=== PATIENT | female | born 1990 | race Caucasian/White ===

== ENCOUNTER → 2017-12-04 | Outpatient (CLI) | payer BC ==
[2017-12-04 07:00] LABS: Basophils % (A) 0 %; Eosinophils # (A) 0.2 k/uL (0-0.7); Eosinophils % (A) 2 %; HCT 41.8 % (34.0-46.0); HGB 13.3 gm/dL (11.4-16.0); Lymphocytes # (A) 2.3 k/uL (1.0-4.8); Lymphocytes % (A) 28 %; MCH 25.9 pg (25.0-35.0); MCHC 31.9 g/dL (31.0-37.0); MCV 81.3 fL (80.0-100.0); Mean Platelet Volume 7.2; Monocytes # (A) 0.4 k/uL (0-1.0); Monocytes % (A) 5 %; Neutrophils # (A) 5.1 k/uL (1.3-7.7); Neutrophils % (A) 63 %; Platelet Count 282 k/uL (150-450); RBC 5.14 m/uL (3.80-5.40); WBC 8.1 k/uL (3.8-10.6)
[2017-12-04 07:26] LABS: ALT 142 U/L (9-52); AST 193 U/L (14-36); Albumin 4.2 g/dL (3.5-5.0); Alkaline Phosphatase 51 U/L (38-126); Anion Gap 11 mmol/L; Blood Urea Nitrogen 13 mg/dL (7-17); Calcium 9.7 mg/dL (8.4-10.2); Carbon Dioxide 25 mmol/L (22-30); Chloride 101 mmol/L (98-107); Cholesterol 191 mg/dL (<200); Glucose 212 mg/dL (74-99); HDL Cholesterol 47 mg/dL (40-60); LDL Cholesterol,Calculated 115 mg/dL (0-99); Potassium 4.8 mmol/L (3.5-5.1); Sodium 137 mmol/L (137-145); Total Bilirubin 0.8 mg/dL (0.2-1.3); Total Protein 7.2 g/dL (6.3-8.2); Triglycerides 145 mg/dL (<150)
[2017-12-04 07:41] LABS: T4, Free (Free Thyroxine) 1.42 ng/dL (0.78-2.19)
== END | disposition home or self-care (01) ==
LOC: LABWHC1 06:39
PROVIDERS: ATTEND Internal Medicine
DX: E78.00 Pure hypercholesterolemia, unspecified (principal); E11.9 Type 2 diabetes mellitus without complications; Z13.29 Encounter for screening for other suspected endocrine disorder; Z13.228 Encounter for screening for other metabolic disorders
CPT/HCPCS: 36415; 80053; 80061; 82043; 82570; 83036; 84439; 84443; 85025

== ENCOUNTER 2021-02-02 10:40 | Emergency (ER) | payer BC ==
[2021-02-02 10:44] VITALS: BP 133/79; PULSE 111; RESP 18; TEMP 97.9
--- NOTE | 2021-02-02 12:10 | XR ---
EXAMINATION TYPE: XR ankle complete LT DATE OF EXAM: 02/02/2021 COMPARISON: NONE HISTORY: Pain TECHNIQUE: 3 views of the left ankle are submitted for evaluation. FINDINGS: There is no evidence for fracture or dislocation. Ankle mortise is intact. Mild soft tissue swelling. IMPRESSION: 1. No evidence for acute fracture.
--- NOTE | 2021-02-02 12:11 | XR ---
EXAMINATION TYPE: XR foot complete LT DATE OF EXAM: 02/02/2021 CLINICAL HISTORY: pain TECHNIQUE: Frontal, lateral and oblique images of the left foot are obtained. COMPARISON: None. FINDINGS: There is no acute fracture/dislocation evident. The joint spaces appear within normal long its. The overlying soft tissue appears unremarkable. IMPRESSION: There is no acute fracture or dislocation. ICD 10 NO FRACTURE, INITIAL EVALUATION
--- NOTE | 2021-02-02 12:58 | ED ---
Lower Extremity Injury HPI - General Chief Complaint: Extremity Injury, Lower Stated Complaint: L Foot Pain Time Seen by Provider: 02/02/21 12:49 Source: patient, family Mode of arrival: ambulatory Limitations: no limitations - History of Present Illness Initial Comments: 30-year-old female presents to the emergency department with a chief complaint of left foot injury. Status occurred about 2 days ago when she was cutting grass and she stepped into a hole with an inversion injury. Patient reports most of the pain is located along the lateral aspect of the foot. Patient reports some pain with weightbearing. Patient also appears to be exacerbated with inversion according to the patient her she does report some swelling but denies any ecchymosis. States the swelling has resolved. Denies any numbness or tingling. - Related Data Home Medications Medication Instructions Recorded Confirmed Dapagliflozin Propanediol [Farxiga] 5 mg PO DAILY 11/24/15 11/29/15 Ibuprofen [Motrin] 200 - 400 mg PO Q6HR PRN 11/24/15 11/24/15 Mylan Control Pill 1 tab PO HS 11/24/15 11/29/15 glipiZIDE [Glucotrol] 5 mg PO BID 11/24/15 11/29/15 Previous Rx's Medication Instructions Recorded Hydrocodone/Acetaminophen [[place] 1 tab PO Q4HR PRN #30 tab 11/29/15 5-325] Allergies Allergy/AdvReac Type Severity Reaction Status Date / Time egg Allergy Abdominal Verified 02/02/21 10:44 Pain Review of Systems ROS Statement: Those systems with pertinent positive or pertinent negative responses have been documented in the HPI. ROS Other: All systems not noted in ROS Statement are negative. Past Medical History Past Medical History: Diabetes Mellitus History of Any Multi-Drug Resistant Organisms: None Reported Past Surgical History: No Surgical Hx Reported Past Psychological History: No Psychological Hx Reported Smoking Status: Never smoker Past Alcohol Use History: None Reported Past Drug Use History: None Reported General Exam Limitations: no limitations General appearance: alert, in no apparent distress, obese Head exam: Present: atraumatic, normocephalic, normal inspection Eye exam: Present: normal appearance, PERRL, EOMI Pupils: Present: normal accommodation ENT exam: Present: normal exam, normal oropharynx, mucous membranes moist, TM's normal bilaterally, normal external ear exam Neck exam: Present: normal inspection, full ROM. Absent: tenderness, lymphadenopathy Respiratory exam: Present: normal lung sounds bilaterally. Absent: respiratory distress, wheezes, rales, rhonchi, stridor, chest wall tenderness Cardiovascular Exam: Present: regular rate, normal rhythm, normal heart sounds. Absent: systolic murmur, diastolic murmur Extremities exam: Present: tenderness (Mild midfoot tenderness. Most tenderness on the lateral aspect of the foot. No fifth metatarsal tenderness. Mild lateral malleolus tenderness), normal capillary refill, other (Palpable DP and PT bilaterally). Absent: normal inspection (Mild swelling in the left foot.), full ROM (Slightly limited range of motion with inversion), joint swelling, calf tenderness Back exam: Present: normal inspection, full ROM. Absent: CVA tenderness (R), CVA tenderness (L) Neurological exam: Present: alert, oriented X3 Psychiatric exam: Present: normal affect, normal mood Skin exam: Present: warm, dry, intact, normal color Course Vital Signs 02/02/21 10:41 Temperature 97.9 F Pulse Rate 111 H Respiratory 18 Rate Blood Pressure 133/79 O2 Sat by Pulse 99 Oximetry Medical Decision Making - Medical Decision Making 30-year-old female presents to emergency Department with a chief complaint of foot injury. Physical examination reveals a neurovascularly intact extremity. X-rays of the foot and ankle are unremarkable. Vincent wrap applied. Patient advised to follow-up with an mobile paint specialist. Return parameters discussed with patient was understanding and agreeable. Case discussed with Disposition Clinical Impression: Injury of left foot, Sprain of left foot Disposition: HOME SELF-CARE Condition: Stable Instructions (If sedation given, give patient instructions): Foot Sprain (ED) Additional Instructions: Please return to the Emergency Department if symptoms worsen or any other concerns. Is patient prescribed a controlled substance at d/c from ED?: No Referrals: Erika Rosado MD [Primary Care Provider] - 1-2 days Temo Corona DO [Doctor of Osteopathic Medicine] - 1-2 days Time of Disposition: 12:58
== END 2021-02-02 13:18 | disposition home or self-care (01) ==
LOC: EC 10:40
DX: S93.602A Unspecified sprain of left foot, initial encounter (principal); E11.9 Type 2 diabetes mellitus without complications; Z79.1 Long term (current) use of non-steroidal anti-inflammatories (NSAID); Z79.84 Long term (current) use of oral hypoglycemic drugs; X50.1XXA Overexertion from prolonged static or awkward postures, initial encounter; Y93.H2 Activity, gardening and landscaping
CPT/HCPCS: 99283

== ENCOUNTER 2021-07-03 07:05 | Outpatient (CLI) | payer BC ==
[2021-07-03 08:18] VITALS: BP 130/75; PULSE 90; RESP 17; TEMP 98.1
--- NOTE | 2021-07-22 10:57 | P.MSEPDOC ---
Presenting Problems - Arrival Data Date of Arrival on Unit: 07/03/21 Time of Arrival on Unit: 07:05 Mode of Transport: Ambulatory - Complaint OB-Reason for Admission/Chief Complaint: Other Comment: abd soft and non tender, pt reports hx of type II diabetes that she takes metformin for, pt denies complications with for her or fetus, pt receives care from dr farley in [facility] and plans to deliver there, pt was at work this morning and reports noticing bright red blood in toilet after using bathroom, pt denies cramping/abd pain, reports + fm, denies intercourse in last 24 hours, no bleeding noted on sterile spec exam, hemorrhoids noted with small amt bright red blood Medical History - Information : 1 Para: 0 Term: 0 : 0 Abortions: Spontaneous or Elective: 0 Number of Living Children: 0 - Gestational Age Gestational Age by CARMELO (wks/days): 25 Weeks and 6 Days Review of Systems - Review of Systems Constitutional: No problems Breast: No problems ENT: No problems Cardiovascular: No problems Respiratory: No problems Gastrointestinal: No problems Genitourinary: No problems Musculoskeletal: No problems Neurological: No problems Skin: No problems Vital Signs - Temperature Temperature: 98.1 F Temperature Source: Oral - Pulse Right Brachial Pulse Rate: 90 Pulse Assessment Method: Automatic Cuff - Respirations Respiratory Rate: 17 Oxygen Delivery Method: Room Air - Blood Pressure Right Arm Blood Pressure: 130/75 Blood Pressure Mean: 93 Blood Pressure Source: Automatic Cuff Medical Screen Scoring - Cervical Exam Dilation (cm): 0 Membranes: Intact - Assessment - Baby A Baseline FHR: 150 Physician Notification - Physician Notified Physician Notified Date: 07/03/21 Physician Notified Time: 07:50 Physician: Pete Henderson Order Received: Yes ([facility]) Maternal Triage Index - Maternal Triage Index Presenting for scheduled procedure w/no complaint: No - Stat/Priority 1 Stat Priority 1: No - Urgent/Priority 2 Urgent Priority 2: No - Prompt/Priority 3 Prompt Priority 3: No - Non-Urgent/Priority 4 Non-Urgent Priority 4: Yes Criteria Met for Priority 4: bright red bleeding noted from hemorrhoids Disposition - Disposition OB Disposition: Discharge to home, Written follow up instructions reviewed Discharge Date: 07/03/21 Discharge Time: 08:00 I agree with the RN Medical Screening Exam: Yes Physician's MSE Comment: I have neither seen nor examined the patient. Case reviewed; plan agreed upon as documented in EMR&OBIX.: Yes Diagnosis: RELATED CONDITIONS, UNSPECIFIED, SECOND TRIMESTER
== END 2021-07-03 08:00 | disposition home or self-care (01) ==
LOC: FBPOP 07:05
PROVIDERS: ATTEND Obstetrics & Gynecology
DX: O22.42 Hemorrhoids in pregnancy, second trimester (principal); Z3A.25 25 weeks gestation of pregnancy; Z91.012 Allergy to eggs
CPT/HCPCS: 99213

== ENCOUNTER 2021-07-26 | Outpatient (CLI) | payer BC ==
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
[2021-07-26 04:34] VITALS: BP 129/76; PULSE 100; RESP 16; TEMP 97.6
== END 2021-07-26 04:00 | disposition home or self-care (01) ==
LOC: FBPOP
PROVIDERS: ATTEND Obstetrics & Gynecology
DX: O9A.213 Injury, poisoning and certain other consequences of external causes complicating pregnancy, third trimester (principal); O24.419 Gestational diabetes mellitus in pregnancy, unspecified control; R10.30 Lower abdominal pain, unspecified; Z3A.29 29 weeks gestation of pregnancy; V49.9XXA Car occupant (driver) (passenger) injured in unspecified traffic accident, initial encounter
CPT/HCPCS: 59025; 86850; 86870; 86880; 86900; 86901; 99213

== ENCOUNTER → 2021-12-05 | Outpatient (CLI) | payer BC ==
[2021-12-05 10:29] LABS: Basophils # (A) 0.04 X 10*3/uL (0.00-0.10); Basophils % (A) 0.5 %; Eosinophils # (A) 0.12 X 10*3/uL (0.04-0.35); Eosinophils % (A) 1.4 %; HCT 38.9 % (37.2-46.3); HGB 12.2 g/dL (12.0-15.0); Immature Grans, Automated 0.5 %; Lymphocytes # (A) 2.35 X 10*3/uL (0.90-5.00); Lymphocytes % (A) 27.8 %; MCH 24.2 pg (27.0-32.0); MCHC 31.4 g/dL (32.0-37.0); MCV 77.2 fL (80.0-97.0); Mean Platelet Volume 11.3 fL (9.5-12.2); Monocytes # (A) 0.37 X 10*3/uL (0.20-1.00); Monocytes % (A) 4.4 %; NRBC Per 100 WBC 0 /100 WBCS (0.0-0.0); Neutrophils # (A) 5.52 X 10*3/uL (1.80-7.70); Neutrophils % (A) 65.4 %; Platelet Count 377 X 10*3/uL (140-440); RBC 5.04 X 10*6/uL (4.10-5.20); WBC 8.44 X 10*3/uL (4.50-10.00)
[2021-12-05 10:45] LABS: ALT 24 U/L (8-44); AST 12 U/L (13-35); African American GFR (CKD) 113.9 (60.0-200.0); Albumin 4.7 g/dL (3.8-4.9); Albumin/Globulin Ratio 1.62 (1.60-3.17); Alkaline Phosphatase 51 U/L (41-126); Calcium 10.1 mg/dL (8.7-10.3); Carbon Dioxide 21.9 mmol/L (20.0-27.5); Chloride 102 mmol/L (96-109); Chol/HDL Ratio 4.52 Ratio; Globulin 2.9 g/dL (1.6-3.3); Glucose 268 mg/dL (70-110); LDL Cholesterol,Calculated 118.9 mg/dL (0.0-131.0); Non-African American GFR(CKD) 98.2 (60.0-200.0); Potassium 4.9 mmol/L (3.5-5.5); Sodium 134 mmol/L (135-145); Total Protein 7.6 g/dL (6.2-8.2)
[2021-12-05 23:16] LABS: C-Peptide 3.16 ng/mL (0.81-3.85)
== END | disposition home or self-care (01) ==
LOC: LABWHC1 07:33
PROVIDERS: ATTEND Internal Medicine
DX: Z00.01 Encounter for general adult medical examination with abnormal findings (principal); E11.9 Type 2 diabetes mellitus without complications; E78.00 Pure hypercholesterolemia, unspecified
CPT/HCPCS: 36415; 80053; 80061; 83036; 84681; 85025

== ENCOUNTER 2025-02-26 17:58 | Emergency (ER) | payer OTHER ==
[2025-02-26 18:23] VITALS: TEMP 99
--- NOTE | 2025-02-26 18:42 | ED ---
General Adult HPI - General Chief complaint: Nausea/Vomiting/Diarrhea Stated complaint: Nausea and Vomiting Time Seen by Provider: 02/26/25 18:25 Source: patient, RN notes reviewed, old records reviewed Mode of arrival: ambulatory Limitations: no limitations - History of Present Illness Initial comments: This is a 34-year-old female presents to the emergency department stating that since February 05 she has been nauseous and vomiting every single day. Patient states she thought she might be . Patient states along with some of the nausea she had some breast tenderness initially but after the first 10 days of nausea vomiting she did have a period and wonders if she had a miscarriage. Patient states the breast tenderness also has stopped. Patient denies any abdominal pain. Patient has any back pain. Patient Nuys dysuria hematuria urinary frequency. Patient denies any other symptoms at this time. Patient is not a drinker. Patient denies any smoking of marijuana - Related Data Home Medications Medication Instructions Recorded Confirmed Aspirin 1 tab PO DAILY 07/03/21 07/26/21 Pnv No.95/Ferrous Fum/Folic AC 1 each PO DAILY 07/03/21 07/26/21 [ Multivitamin Tablet] metFORMIN HCL [Glucophage] 1,000 mg PO BID 07/03/21 07/26/21 Previous Rx's Medication Instructions Recorded Oseltamivir 6Mg/ml Oral Susp 60 mg PO BID #100 ml 10/28/24 [Tamiflu] Ondansetron [Zofran] 4 mg PO Q8HR PRN #10 tab 02/26/25 Allergies Allergy/AdvReac Type Severity Reaction Status Date / Time egg Allergy Abdominal Verified 02/26/25 18:23 Pain Review of Systems ROS Statement: Those systems with pertinent positive or pertinent negative responses have been documented in the HPI. ROS Other: All systems not noted in ROS Statement are negative. Past Medical History Past Medical History: Diabetes Mellitus History of Any Multi-Drug Resistant Organisms: None Reported Past Surgical History: Section, Cholecystectomy Past Psychological History: No Psychological Hx Reported Smoking Status: Never smoker Past Alcohol Use History: None Reported Past Drug Use History: None Reported General Exam - General Exam Comments Initial Comments: GENERAL: Patient is well-developed and well-nourished. Patient is nontoxic and well- hydrated and is in mild distress. ENT: Neck is soft and supple. No significant lymphadenopathy is noted. Oropharynx is clear. Moist mucous membranes. Neck has full range of motion without eliciting any pain. EYES: The sclera were anicteric and conjunctiva were pink and moist. Extraocular movements were intact and pupils were equal round and reactive to light. Eyelids were unremarkable. PULMONARY: Unlabored respirations. Good breath sounds bilaterally. No audible rales rhonchi or wheezing was noted. CARDIOVASCULAR: There is a regular rate and rhythm without any murmurs gallops or rubs. ABDOMEN: Soft and nontender with normal bowel sounds. SKIN: Skin is clear with no lesions or rashes and otherwise unremarkable. NEUROLOGIC: Patient is alert and oriented x3. Cranial nerves II through XII are grossly intact. Motor and sensory are also intact. Normal speech, volume and content. Symmetrical smile. MUSCULOSKELETAL: Normal extremities with adequate strength and full range of motion. LYMPHATICS: No significant lymphadenopathy is noted PSYCHIATRIC: Normal psychiatric evaluation. Limitations: no limitations Course Vital Signs 02/26/25 02/26/25 18:20 18:45 Temperature 99 F Pulse Rate 114 H Respiratory 20 Rate Blood Pressure 162/113 142/99 O2 Sat by Pulse 98 Oximetry Medical Decision Making - Medical Decision Making Was pt. sent in by a medical professional or institution (PAULINE Damon, MOLD COOLER, urgent care, hospital, or usp...) When possible be specific @ -[No] Did you speak to anyone other than the patient for history (EMS, parent, family, police, friend...)? What history was obtained from this source @ -[No] Did you review nursing and triage notes (agree or disagree)? Why? @ -[I reviewed and agree with nursing and triage notes] Were old charts reviewed (outside hosp., previous admission, EMS record, old EKG, old radiological studies, urgent care reports/EKG's, usp records)? Report findings @ -[No old charts were reviewed] Differential Diagnosis? @ -Acute vomiting, gastritis, gastroenteritis, GERD, is not an all-inclusive list EKG interpreted by me (3pts min.). @ -[As above] X-rays interpreted by me (1pt min.). @ -[None done] CT interpreted by me (1pt min.). @ -[None done] U/S interpreted by me (1pt. min.). @ -[None done] What testing was considered but not performed or refused? (CT, X-rays, U/S, labs)? Why? @ -[None] What meds were considered but not given or refused? Why? @ -[None] Did you discuss the management of the patient with other professionals (professionals i.e. , PA, MOLD COOLER, lab, RT, psych nurse, social work specialist, painter ski edge, teacher, aviation safety officer, shoe parts caser)? Give summary @ -[No] Was smoking cessation discussed for >3mins.? @ -[No] Was critical care preformed (if so, how long)? @ -[No] Were there social determinants of health that impacted care today? How? (Homelessness, low income, unemployed, alcoholism, drug addiction, tra nsportation, low edu. Level, literacy, decrease access to med. care, prison, rehab)? @ -[No] Was there de-escalation of care discussed even if they declined (Discuss DNR or withdrawal of care, Hospice)? DNR status @ -[No] What co-morbidities impacted this encounter? (DM, HTN, Smoking, COPD, CAD, Cance r, CVA, ARF, Chemo, Hep., AIDS, mental health diagnosis, sleep apnea, morbid obesity)? @ -[None] Was patient admitted / discharged? Hospital course, mention meds given and route, prescriptions, significant lab abnormalities, going to OR and other pertinent info. @ -Patient was given Zofran and fluids in the emergency department. I went back into reevaluate the patient and patient was not having any nausea and had not vomited in the emergency department. Undiagnosed new problem with uncertain prognosis? @ -[No] Drug Therapy requiring intensive monitoring for toxicity (Heparin, Nitro, Insulin, Cardizem)? @ -[No] Were any procedures done? @ -[No] Diagnosis/symptom? @ -Persistent vomiting Acute, or Chronic, or Acute on Chronic? @ -Acute Uncomplicated (without systemic symptoms) or Complicated (systemic symptoms)? @ -Complicated Side effects of treatment? @ -[No] Exacerbation, Progression, or Severe Exacerbation? @ -[No] Poses a threat to life or bodily function? How? (Chest pain, USA, AR, pneumonia, PE, COPD, DKA, ARF, appy, cholecystitis, CVA, Diverticulitis, Homicidal, Suicidal, threat to staff... and all critical care pts) @ -[No] - Lab Data Result diagrams: 02/26/25 18:38 02/26/25 18:38 Lab Results 02/26/25 02/26/25 Range/Units 18:38 18:38 WBC 9.32 (4.50-10.00) 10*3/uL RBC 5.37 H (4.10-5.20) 10*6/uL Hgb 14.7 (12.0-15.0) g/dL Hct 42.1 (37.2-46.3) % MCV 78.4 L (80.0-97.0) fL MCH 27.4 (27.0-32.0) pg MCHC 34.9 (32.0-37.0) g/dL Plt Count 306 (140-440) 10*3/uL MPV 9.8 (9.5-12.2) fL Immature Gran % (Auto) 0.4 % Neutrophils % 60.5 % Lymphocytes % 28.5 % Monocytes % 7.1 % Eosinophils % 3.3 % Basophils % 0.2 % Immature Gran # 0.04 (0.00-0.04) 10*3/uL Neutrophils # 5.63 (1.80-7.70) 10*3/uL Lymphocytes # 2.66 (0.90-5.00) 10*3/uL Monocytes # 0.66 (0.20-1.00) 10*3/uL Eosinophils # 0.31 (0.04-0.35) 10*3/uL Basophils # 0.02 (0.00-0.10) 10*3/uL Sodium 134 L (137-145) mmol/L Potassium 4.4 (3.5-5.1) mmol/L Chloride 102 (98-107) mmol/L Carbon Dioxide 20 L (22-30) mmol/L Anion Gap 12 mmol/L BUN 12 (7-17) mg/dL Creatinine 0.47 L (0.52-1.04) mg/dL Est GFR (CKD-EPI)AfAm >90 (>60 ml/min/1.73 sqM) Est GFR (CKD-EPI)NonAf >90 (>60 ml/min/1.73 sqM) Glucose 327 H (74-99) mg/dL Calcium 9.3 (8.4-10.2) mg/dL Total Bilirubin 0.6 (0.2-1.3) mg/dL AST 24 (14-36) U/L ALT 27 (4-34) U/L Alkaline Phosphatase 60 (38-126) U/L Total Protein 6.5 (6.3-8.2) g/dL Albumin 3.7 (3.5-5.0) g/dL Amylase 36 (30-110) U/L Lipase 72 (23-300) U/L HCG, Quant <2.4 mIU/mL Disposition Clinical Impression: Acute vomiting Disposition: HOME SELF-CARE Condition: Good Instructions (If sedation given, give patient instructions): Acute Nausea and Vomiting (ED) Prescriptions: Ondansetron [Zofran] 4 mg PO Q8HR PRN #10 tab PRN Reason: Nausea And Vomiting Is patient prescribed a controlled substance at d/c from ED?: No Referrals: Nilsa Armas MD [Primary Care Provider] - 1-2 days Time of Disposition: 20:31
[2025-02-26] MEDS: ONDANSETRON 4 MG/2 ML VIAL IVP STA (18:50)
[2025-02-26] MEDS: LACTATED RINGERS 1,000 ML IV ONE (18:50)
[2025-02-26 19:04] LABS: Basophils # (A) 0.02 10*3/uL (0.00-0.10); Basophils % (A) 0.2 %; Eosinophils # (A) 0.31 10*3/uL (0.04-0.35); Eosinophils % (A) 3.3 %; HCT 42.1 % (37.2-46.3); HGB 14.7 g/dL (12.0-15.0); Lymphocytes # (A) 2.66 10*3/uL (0.90-5.00); Lymphocytes % (A) 28.5 %; MCH 27.4 pg (27.0-32.0); MCHC 34.9 g/dL (32.0-37.0); MCV 78.4 fL (80.0-97.0); Mean Platelet Volume 9.8 fL (9.5-12.2); Monocytes # (A) 0.66 10*3/uL (0.20-1.00); Monocytes % (A) 7.1 %; Neutrophils # (A) 5.63 10*3/uL (1.80-7.70); Neutrophils % (A) 60.5 %; Platelet Count 306 10*3/uL (140-440); RBC 5.37 10*6/uL (4.10-5.20); RDW 11.9 % (11.5-14.5); WBC 9.32 10*3/uL (4.50-10.00)
[2025-02-26 19:18] LABS: ALT 27 U/L (4-34); AST 24 U/L (14-36); African American GFR (CKD) >90 (>60 ml/min/1.73 sqM); Albumin 3.7 g/dL (3.5-5.0); Alkaline Phosphatase 60 U/L (38-126); Amylase 36 U/L (30-110); Anion Gap 12 mmol/L; Blood Urea Nitrogen 12 mg/dL (7-17); Calcium 9.3 mg/dL (8.4-10.2); Carbon Dioxide 20 mmol/L (22-30); Chloride 102 mmol/L (98-107); Glucose 327 mg/dL (74-99); Lipase 72 U/L (23-300); Non-African American GFR(CKD) >90 (>60 ml/min/1.73 sqM); Potassium 4.4 mmol/L (3.5-5.1); Sodium 134 mmol/L (137-145); Total Bilirubin 0.6 mg/dL (0.2-1.3); Total Protein 6.5 g/dL (6.3-8.2)
[2025-02-26] MEDS: METOPROLOL SUCCINATE (ER) 25 MG TAB.ER.24H PO STA (19:24)
[2025-02-26 19:34] LABS: HCG,Quantitative Serum <2.4 mIU/mL
[2025-02-26] MEDS: ONDANSETRON 4 MG ODT STARTER PACK 2 TAB BTL PO STA (20:39)
[2025-02-26 20:42] VITALS: BP 151/96; PULSE 99; RESP 18
== END 2025-02-26 20:40 | disposition home or self-care (01) ==
LOC: EC 17:58
DX: R11.2 Nausea with vomiting, unspecified (principal); Z91.012 Allergy to eggs
CPT/HCPCS: 36415; 80053; 82150; 83690; 85025; 84702; 99284; 96374; 96361; J2405; S0119